=== PATIENT | female | born 1970 | race Caucasian/White ===

== ENCOUNTER 2019-04-24 11:20 | Emergency (ER) | payer OTHER ==
[~2019-04-24] VITALS: Ht 152.4 cm; Wt 64.4 kg
[2019-04-24 11:30] VITALS: Ht 152.4 cm; Wt 64.4 kg
[2019-04-24 13:18] VITALS: BP 133/79
== END 2019-04-24 13:18 | disposition home or self-care (01) ==
LOC: ED 11:20
DX: K21.9 Gastro-esophageal reflux disease without esophagitis (principal); R10.13 Epigastric pain

== ENCOUNTER 2019-05-18 09:29 | Emergency (ER) | payer OTHER ==
[~2019-05-18] VITALS: Ht 152.4 cm; Wt 63.5 kg
[2019-05-18 09:53] VITALS: Ht 152.4 cm; Wt 63.5 kg
[2019-05-18 12:38] VITALS: BP 140/82
== END 2019-05-18 12:38 | disposition home or self-care (01) ==
LOC: ED 09:29
DX: N39.0 Urinary tract infection, site not specified (principal)